=== PATIENT | male | born 1940 | race Hispanic/Latino ===

== ENCOUNTER 2021-08-19 13:20 | Inpatient (IN) | payer MEDICARE ==
[~2021-08-19] VITALS: Ht 172.7 cm; Wt 92.5 kg
[~2021-08-19 13:20] MED LIST: ALLOPURINOL300 MG PO; ATORVASTATIN CA10 MG PO; CHLORTHALIDONE50 MG PO; DILTIAZEM 24HR180 MG PO; FUROSEMIDE40 MG PO; GEMFIBROZIL600 MG PO; GLIPIZIDE5 MG PO; HUMALOG MI100 UNIT/4 SC; LANTUS100 UNITS/ SQ; LEVEMIR100 UNIT/1 SC; TAMSULOSIN HCL0.4 MG PO
[2021-08-19 13:52] LABS: BASOPHILS % 0.2 % (0.0-1.0); EOSINOPHILS # (AUTO) 0.1 (0.0-0.4); EOSINOPHILS % 0.8 % (0.0-6.0); HEMATOCRIT 35.6 % (38.2-49.6); HEMOGLOBIN 11.9 g/dL (14.0-18.0); LYMPHOCYTES # (AUTO) 0.4 (1.0-3.2); LYMPHOCYTES % 5.9 % (18.0-39.1); MEAN CORPUSCULAR HEMOGLOBIN 30.3 pg (28-32); MEAN CORPUSCULAR HGB CONC 33.4 g/dL (31-35); MEAN CORPUSCULAR VOLUME 90.6 fL (81-99); MONOCYTES # (AUTO) 1.1 (0.2-0.8); MONOCYTES % 16.5 % (4.4-11.3); NEUTROPHILS % 76.4 % (38.7-80.0); PLATELET COUNT 101 x10e3/uL (140-360); RED BLOOD COUNT 3.93 x10e6/uL (4.3-5.7); RED CELL DISTRIBUTION WIDTH 12.9 % (11.7-14.4)
[2021-08-19 14:05] LABS: CLARITY,URINE CLEAR (CLEAR); COLOR,URINE YELLOW (YELLOW); KETONES,URINE NEGATIVE (NEGATIVE); LEUKOCYTE ESTERASE ,URINE NEGATIVE (NEGATIVE); NITRITE,URINE NEGATIVE (NEGATIVE); PROTEIN,URINE DIPSTICK >=300 (NEGATIVE); URINE UROBILINOGEN 0.2 mg/dL (0.2 - 1)
[2021-08-19 14:12] LABS: ALBUMIN 3.5 g/dL (3.5-5.0); ALBUMIN/GLOBULIN RATIO 1.1 (0.8-2.0); ANION GAP 16.2 mmol/L (8-16); CALCIUM 9.2 mg/dL (8.4-10.2); CREATININE, SERUM 3.55 mg/dL (0.72-1.25); POTASSIUM 4.2 mmol/L (3.5-5.1)
[2021-08-19 14:16] LABS: BACTERIA,URINE MODERATE /HPF; RBC,URINE 0-5 /HPF (0-5); WBC,URINE (MAN) 0-5 /HPF (0-5)
[2021-08-19 14:17] LABS: AMORPHOUS SEDIMENT,URINE MODERATE (FEW); EPITHELIAL CELLS,URINE FEW /LPF
[2021-08-19 14:20] LABS: CREATINE KINASE MB 1.9 ng/mL (0-5.0)
[2021-08-19] MEDS: PIPERACILLIN/TAZOBACTAM 3.375 GM in SODIUM CHLORIDE 0.9% 50ML 50 ML IV SCH ×2 (14:38→20:46)
[2021-08-19] MEDS ORDERED: Morphine 2mg Syringe 2 MG/ML SYR IV PRN (15:45)
[2021-08-19] MEDS ORDERED: ONDANSETRON HCL INJ 2MG/ML 2ML 2 MG/ML VIAL IV PRN (15:45)
[2021-08-19] MEDS: SODIUM CHLORIDE 0.9% 1000ML 1,000 ML IV SCH (15:45)
[2021-08-19 17:05] LABS: CREATINE KINASE MB 1.8 ng/mL (0-5.0)
[2021-08-19 19:31] VITALS: BP 160/86
[2021-08-19 19:37] VITALS: BP 160/86
[2021-08-19 20:10] VITALS: BP 155/77
[2021-08-19] MEDS ORDERED: ACETAMINOPHEN 325 MG TAB PO PRN (20:45)
[2021-08-19] MEDS: ATORVASTATIN 10 MG TAB PO SCH (20:46)
[2021-08-19 20:55] LABS: CHOL/HDL RATIO 4.6 (3.9-4.7)
[2021-08-19 21:00] VITALS: BP 155/77
[2021-08-20] VITALS (9 sets, daily range): BP systolic 144–173; BP diastolic 60–105
[2021-08-20 02:52] LABS: CREATINE KINASE MB 2.4 ng/mL (0-5.0)
[2021-08-20] MEDS: PIPERACILLIN/TAZOBACTAM 3.375 GM in SODIUM CHLORIDE 0.9% 50ML 50 ML IV SCH ×4 (04:54→20:20)
[2021-08-20] MEDS: SODIUM CHLORIDE 0.9% 1000ML 1,000 ML IV SCH ×3 (04:54→15:04)
[2021-08-20 05:08] LABS: BASOPHILS % 0.2 % (0.0-1.0); EOSINOPHILS % 0.7 % (0.0-6.0); HEMATOCRIT 32.9 % (38.2-49.6); HEMOGLOBIN 11.1 g/dL (14.0-18.0); LYMPHOCYTES # (AUTO) 0.5 (1.0-3.2); LYMPHOCYTES % 8.7 % (18.0-39.1); MEAN CORPUSCULAR HEMOGLOBIN 30.3 pg (28-32); MEAN CORPUSCULAR HGB CONC 33.7 g/dL (31-35); MEAN CORPUSCULAR VOLUME 89.9 fL (81-99); MONOCYTES # (AUTO) 1.1 (0.2-0.8); MONOCYTES % 19.1 % (4.4-11.3); NEUTROPHILS # (AUTO) 3.9 (2.1-6.9); NEUTROPHILS % 70.9 % (38.7-80.0); PLATELET COUNT 93 x10e3/uL (140-360); RED BLOOD COUNT 3.66 x10e6/uL (4.3-5.7); RED CELL DISTRIBUTION WIDTH 12.7 % (11.7-14.4)
[2021-08-20 05:42] LABS: ALBUMIN/GLOBULIN RATIO 1.1 (0.8-2.0); ANION GAP 13.9 mmol/L (8-16); CALCIUM 8.6 mg/dL (8.4-10.2); CREATININE, SERUM 3.18 mg/dL (0.72-1.25); POTASSIUM 3.9 mmol/L (3.5-5.1)
[2021-08-20] MEDS ORDERED: ONDANSETRON HCL 4 MG ORAL DISINTEGRATING TAB PO PRN (07:45)
[2021-08-20] MEDS: DILTIAZEM HCL ER 120 MG CAP PO SCH (08:33)
[2021-08-20] MEDS: ALLOPURINOL 300 MG TAB PO SCH ×2 (08:34→16:31)
[2021-08-20] MEDS ORDERED: DEXTROSE 50% SYRINGE 50 ML IV PRN (12:45)
[2021-08-20] MEDS: INSULIN LISPRO 100 UNIT/1 ML 3ML VIAL SQ SCH ×2 (16:31→20:37)
[2021-08-20] MEDS: ATORVASTATIN 10 MG TAB PO SCH (20:20)
[2021-08-21] VITALS (8 sets, daily range): BP systolic 137–172; BP diastolic 64–90
[2021-08-21] MEDS: SODIUM CHLORIDE 0.9% 1000ML 1,000 ML IV SCH ×4 (00:06→23:52)
[2021-08-21] MEDS: PIPERACILLIN/TAZOBACTAM 3.375 GM in SODIUM CHLORIDE 0.9% 50ML 50 ML IV SCH ×4 (03:00→20:19)
[2021-08-21] MEDS ORDERED: SODIUM CHLORIDE 0.9% 250ML 250 ML ONE (08:05)
[2021-08-21] MEDS: HYDRALAZINE HCL 10 MG TAB PO SCH ×3 (09:28→20:32)
[2021-08-21] MEDS: ALLOPURINOL 300 MG TAB PO SCH ×2 (09:29→20:19)
[2021-08-21] MEDS: DILTIAZEM HCL ER 120 MG CAP PO SCH (09:29)
[2021-08-21] MEDS: INSULIN LISPRO 100 UNIT/1 ML 3ML VIAL SQ SCH ×3 (09:30→20:30)
[2021-08-21] MEDS: ATORVASTATIN 10 MG TAB PO SCH (20:19)
[2021-08-22] MEDS: PIPERACILLIN/TAZOBACTAM 3.375 GM in SODIUM CHLORIDE 0.9% 50ML 50 ML IV SCH ×2 (02:51→08:47)
[2021-08-22 04:24] VITALS: BP 159/65
[2021-08-22] MEDS: HYDRALAZINE HCL 10 MG TAB PO SCH (05:41)
[2021-08-22] MEDS ORDERED: HYDRALAZINE HCL25 MG PO (06:40)
[2021-08-22 07:20] LABS: ANION GAP 14.8 mmol/L (8-16); CALCIUM 8.5 mg/dL (8.4-10.2); CREATININE, SERUM 3.07 mg/dL (0.72-1.25); POTASSIUM 3.8 mmol/L (3.5-5.1)
[2021-08-22] MEDS: INSULIN LISPRO 100 UNIT/1 ML 3ML VIAL SQ SCH (07:30)
[2021-08-22 07:54] VITALS: BP 160/73
[2021-08-22] MEDS: SODIUM CHLORIDE 0.9% 1000ML 1,000 ML IV SCH (08:47)
[2021-08-22] MEDS: DILTIAZEM HCL ER 120 MG CAP PO SCH (08:48)
[2021-08-22] MEDS: ALLOPURINOL 300 MG TAB PO SCH (08:48)
[2021-08-22 09:29] VITALS: BP 160/73
[2021-08-22] MEDS ORDERED: SODIUM BICARBO650 MG PO (09:36)
[2021-08-22] MEDS ORDERED: HYDRALAZINE HCL 25 MG TAB PO SCH (14:00)
== END 2021-08-22 10:53 | disposition home or self-care (01) | DRG 177 ==
LOC: ER 13:25 → ERHOLD 15:32 → IMCU 18:11 → OBSVTOIN 08-20 06:59
PROVIDERS: ADMIT Internal Medicine; ATTEND Internal Medicine
PROC: 8E0ZXY6 Isolation (ICD-10-PCS; principal; 2021-08-20)
DX: U07.1 COVID-19 (principal); J12.82 Pneumonia due to coronavirus disease 2019; G93.41 Metabolic encephalopathy; I26.99 Other pulmonary embolism without acute cor pulmonale; N39.0 Urinary tract infection, site not specified; N17.9 Acute kidney failure, unspecified; E11.22 Type 2 diabetes mellitus with diabetic chronic kidney disease; I12.9 Hypertensive chronic kidney disease with stage 1 through stage 4 chronic kidney disease, or unspecified chronic kidney disease; N18.30 Chronic kidney disease, stage 3 unspecified; Z79.899 Other long term (current) drug therapy; E66.9 Obesity, unspecified; Z68.30 Body mass index [BMI] 30.0-30.9, adult; D69.6 Thrombocytopenia, unspecified; M10.9 Gout, unspecified
CPT/HCPCS: 36415; 70450; 71250; 74176; 80048; 80053; 80061; 81001; 82140; 82550; 82553; 82948; 83036; 84484; 84550; 85025; 93005; 94799; 96361; 96372; 97139; 99284; G0378; J2543; J7030; J7050; U0002